=== PATIENT | female | born 1960 | race Caucasian/White ===

== ENCOUNTER 2017-03-24 05:35 | Inpatient (IN) | payer OTHER ==
[2017-03-16 14:27] LABS: URINE BILIRUBIN NEGATIVE (Negative); URINE BLOOD TRACE (Negative); URINE COLOR YELLOW; URINE GLUCOSE-RANDOM* NEGATIVE (Negative); URINE KETONES NEGATIVE (Negative); URINE PROTEIN (DIPSTICK) NEGATIVE (Negative); URINE SPECIFIC GRAVITY 1.025 (1.003-1.035); URINE UROBILINOGEN 0.2 E.U./dl (0.2-1.0)
[2017-03-16 14:28] LABS: URINE LEUKOCYTES-REFLEX 1+ (Negative)
[2017-03-16 14:38] LABS: ALBUMIN 4.4 g/dL (3.4-5.0); CALCIUM 9.4 mg/dL (8.5-10.1); CREATININE 0.8 mg/dL (0.6-1.0); POTASSIUM 4.1 mmol/L (3.5-5.1)
[2017-03-16 14:40] LABS: SQUAMOUS 0-3 Few /LPF (0-3)
[2017-03-16 14:41] LABS: CASTS None Seen /LPF (None Seen); CRYSTALS None Seen /LPF (None Seen); URINE RBC None Seen /HPF (0-2); URINE WBC-REFLEX 6-15 Few /HPF (0-5)
[2017-03-16 14:44] LABS: PROTIME 10.1 Seconds (9.3-11.4)
[~2017-03-24] VITALS: Ht 157.5 cm; Wt 68.5 kg
[2017-03-24] VITALS (8 sets, daily range): BP systolic 100–131; BP diastolic 69–89
--- NOTE | ~2017-03-24 | EKG ---
[address] [address] ELECTROCARDIOGRAM REPORT Name: PRATIBHA DUVALL Room #: PRE IN [facility].#: [id number] Admission: Attend Phys: Karl Nuñez MD Discharge: Date of : 56 Report #: [id number] THIS REPORT FOR: //name// [facility] Test Date: 2017-03-16 Test Time: 14:34:04 Pat Name: PRATIBHA DUVALL Department: Room: Gender: F Shuffle Board Operator: zana : 1960 Requested By: Karl Nuñez Order Number: [id number] MD: Chon Tellez Measurements Intervals [place] Rate: 91 P: 35 CO: 135 QRS: 41 QRSD: 71 T: -43 QT: 337 QTc: 415 Interpretive Statements Sinus rhythm Borderline repolarization abnormality No previous ECG available for comparison Electronically Signed On 03-16-2017 16:33:46 CDT by Chon Tellez [email or web address] <ELECTRONICALLY SIGNED> By: Chon Tellez MD 03/16/17 1633 1434 1434 Chon Tellez MD /LÓPEZ
--- NOTE | ~2017-03-24 | O ---
[facility] [place] [address] OPERATIVE REPORT Name: PRATIBHA DUVALL Armand Room #: 150-5 ADM IN M.R.#: [id number] Admission: 03/24/17 Attend Phys: Karl Nuñez MD Discharge: Date of : 56 Report #: [id number] THIS REPORT FOR: //name// CC: Alana Nuñez DATE OF SERVICE: 03/24/2017 PREOPERATIVE DIAGNOSIS: Left knee degenerative joint disease, severe. POSTOPERATIVE DIAGNOSIS: Left knee degenerative joint disease, severe. PROCEDURE: Left total knee arthroplasty. ARTISTS' BOOKING REPRESENTATIVE: ZENIA Pena. INDICATIONS FOR ARTISTS' BOOKING REPRESENTATIVE: During the course of operation, extensive manipulation, retraction and limb positioning was required. This was afforded to me by my microbiology lab assistant. ANESTHETIC: General. INDICATIONS: See hospital H and P. IMPLANTS UTILIZED: We used a DePuy PFC knee system. We used a cruciate retaining femoral component size 2.5, size 2 tibial tray with a 10 mm insert and a 32 mm oval dome patella. DESCRIPTION OF PROCEDURE: After adequate general anesthesia had been obtained, the patient's left lower extremity was prepped and draped in the usual meticulous sterile fashion. Limb was exsanguinated with gravity, tourniquet was inflated to 300 torr. Anterior midline incision was made, subQ divided sharply. Hemostasis obtained with electrocautery. Medial parapatellar incision was made. Infrapatellar fat pad excised. Medial release performed. The drill was used to drill the distal femur. This was enlarged, irrigated and suctioned, and the intramedullary guide placed the full length of the femur. Distal femoral cutting guide pinned to appropriate height, distal femoral cut was made. We used a measuring device to determine that a size 2.5 was the appropriate size for the femur. We marked the distal femur, impacted the cutting guide into position and the anterior, posterior and chamfer cuts were made. Rongeur was used to remove additional osteophytes. At this time, the ACL was transected, tibia translated anteriorly, menisci were excised. Drill was used to drill central portion of the tibia. This hole was enlarged, irrigated, suctioned, and the intramedullary guide placed the full length of tibia. Proximal tibial cutting guide placed at appropriate height. [facility] [address] [place] [address] OPERATIVE REPORT Name: PRATIBHA DUVALL Armand Room #: 150-5 [facility] IN M.R.#: [id number] Admission: 03/24/17 Attend Phys: Karl Nuñez MD Discharge: Date of : 56 Report #: [id number] Proximal tibia cut was made and 2 tray gave us the best coverage on the tibia. Trial components were then placed in position and with the 10 spacer, we had the best flexion and extension gap. She had a little bit roll back, so I released the PCL partially off the tibia. This resulted in improved roll back. The patella was then measured, cutting guide clamped into place, patellar cut was made, 32 template gave us the best coverage. Pedicles were drilled, trial component put in position. The knee was taken through several cycles of flexion, extension and to achieve the optimal tibial rotation. Tibial rotation was marked, distal femur drilled. Trial components were removed. Tibial keel cuts were made and then bone plugs were placed in proximal tibia and distal femur. We irrigated the knee with both pulse lavage and antibiotic irrigation. Cement was vacuum mixed and when it reached the appropriate consistency, the knee was thoroughly dried, the tibial tray was cemented in place, excess cement was removed. Polyethylene spacer impacted in place. The femur impacted in place and the knee was taken out to 30 degrees of flexion with uniform compression placed across components. Patellar button was then cemented into place and again, excess cement was removed. Irrigation was placed in the wound and allowed to rest in the wound while the cement fully cured. When it had done so, the knee was irrigated, dried thoroughly and inspected. Drains were placed superolaterally, both deep and superficial. Retinacular layer was closed with combination of interrupted [id number] #1 Vicryl as well as running #1 Tevdek. SubQ closed with 2-0 Monocryl, skin closed with delma. Sterile compressive dressing applied. Tourniquet deflated. By: [id number] Karl Nuñez MD /nt
[~2017-03-24 05:35] MED LIST: ASPIR 8181 MG PO; CALCIUM 600 +1 EAC1 PO; CENTRUM SILVER1 EAC2 PO; GLUCOPHAGE XR750 M1 PO; IMITREX20 MG NASAL; LIPITOR 20 MG T20 M1 PO; ONGLYZA5 MG PO; VENTOLIN HFA 1818 GM INH; VITAMIN D1000 UNI1 PO; VITAMIN E400 UNIT PO
[2017-03-25] VITALS (7 sets, daily range): BP systolic 92–107; BP diastolic 54–75
[2017-03-25 06:07] LABS: HEMATOCRIT 39.3 % (37.0-47.0); HEMOGLOBIN 12.8 gm/dL (12.0-15.0); MCH 29.1 pg (26.0-34.0); MCHC 32.6 g/dL (28.0-37.0); MCV 89.3 fL (80.0-100.0); RBC 4.4 mil/uL (4.20-5.00); RDW 13.5 % (10.5-14.5)
[2017-03-26] VITALS: BP 94/64
[2017-03-26 05:00] VITALS: BP 111/75
[2017-03-26 05:17] LABS: HEMATOCRIT 34.9 % (37.0-47.0); HEMOGLOBIN 11.4 gm/dL (12.0-15.0); MCH 29.2 pg (26.0-34.0); MCHC 32.6 g/dL (28.0-37.0); MCV 89.7 fL (80.0-100.0); RBC 3.89 mil/uL (4.20-5.00); RDW 13.3 % (10.5-14.5); WBC 11.6 thou/uL (4.0-11.0)
[2017-03-26] MEDS ORDERED: XARELTO10 MG PO (06:53)
[2017-03-26 07:45] VITALS: BP 118/83
[2017-03-26 20:06] VITALS: BP 122/75
[2017-03-27 03:45] LABS: HEMATOCRIT 33.1 % (37.0-47.0); HEMOGLOBIN 11.4 gm/dL (12.0-15.0); MCH 30.2 pg (26.0-34.0); MCHC 34.3 g/dL (28.0-37.0); MCV 88.1 fL (80.0-100.0); RBC 3.76 mil/uL (4.20-5.00); RDW 13.6 % (10.5-14.5); WBC 5.8 thou/uL (4.0-11.0)
[2017-03-27 04:43] VITALS: BP 119/76
[2017-03-27] MEDS ORDERED: PERCOCET 10-321 EACH PO (06:46)
[2017-03-27] MEDS ORDERED: MS CONTIN15 MG PO (06:48)
[2017-03-27 09:50] VITALS: BP 128/89
[2017-03-27 16:04] VITALS: BP 95/70
[2017-03-27 16:53] VITALS: BP 95/70
[2017-03-27 17:31] VITALS: BP 104/41
== END 2017-03-27 18:18 | disposition home health service (06) | DRG 470 ==
LOC: TBA 05:35 → 4N 05:35 → PRE 11:31 → 4N 14:41
PROVIDERS: Orthopaedic Surgery
PROC: 0SRD0J9 Replacement of Left Knee Joint with Synthetic Substitute, Cemented, Open Approach (ICD-10-PCS; principal; 2017-03-24)
DX: M17.12 Unilateral primary osteoarthritis, left knee (principal); K56.7 Ileus, unspecified; E78.5 Hyperlipidemia, unspecified; E11.9 Type 2 diabetes mellitus without complications; Z88.1 Allergy status to other antibiotic agents; Z88.6 Allergy status to analgesic agent; Z88.8 Allergy status to other drugs, medicaments and biological substances; Z23 Encounter for immunization; Z90.711 Acquired absence of uterus with remaining cervical stump; Z82.61 Family history of arthritis
CPT/HCPCS: 10790; 50010; 50101; 50415; 50954; 51130; 51225; 51320; 51412; 51771; 52001; 53000; 53078; 53364; 56525; 56527; 62110; 62900; 64042; 64043; 70005